=== PATIENT | female | born 1990 ===

== ENCOUNTER 2017-09-10 16:51 | Emergency (ER) | payer SELFPAY ==
[2017-09-10 17:02] VITALS: BP 122/76; PULSE 78; RESP 17; TEMP 98.3; O2SAT 99
== END 2017-09-10 18:50 | disposition left against medical advice (07) ==
LOC: H.ER 16:51
DX: Z02.89 Encounter for other administrative examinations (principal)

== ENCOUNTER 2017-09-11 04:08 | Emergency (ER) | payer SELFPAY ==
[2017-09-11 04:40] VITALS: BP 118/78; PULSE 84; RESP 16; TEMP 99; O2SAT 99
--- NOTE | 2017-09-11 05:04 | ED PDOC ---
HPI: Back Time Seen by Provider: 09/11/17 04:38 Chief Complaint (Nursing): Back Pain Chief Complaint (Provider): back pain History Per: Patient History/Exam Limitations: no limitations Onset/Duration Of Symptoms: Hrs (9) Current Symptoms Are (Timing): Still Present Exacerbating Factor(s): Standing Additional Complaint(s): 26 y/o female presents with low back pain x 9 hours. Patient states symptoms started while cooking, notes pain to radiate down right buttock to right hip. Pain worse with standing. Denies fever, nausea/vomiting, bowel/bladder incontinence, numbness/weakness lower extremities. No medication taken for relief thus far. Past Medical History Reviewed: Historical Data, Nursing Documentation, Vital Signs Vital Signs: Last Vital Signs Temp 99.0 F 09/11/17 04:38 Pulse 84 09/11/17 04:38 Resp 16 09/11/17 04:38 BP 118/78 09/11/17 04:38 Pulse Ox 99 09/11/17 04:38 - Medical History PMH: No Chronic Diseases - Surgical History Surgical History: No Surg Hx - Family History Family History: States: Unknown Family Hx - Living Arrangements Living Arrangements: Alone - Social History Alcohol: None Drugs: Denies - Immunization History Hx Tetanus Toxoid Vaccination: No Hx Influenza Vaccination: No Hx Pneumococcal Vaccination: No - Home Medications Home Medications: Ambulatory Orders Medication Instructions Recorded Metronidazole [Flagyl] 500 mg PO ONCE #4 tab 12/14/16 Ondansetron [Zofran Odt] 4 mg PO ASDIR PRN #10 odt 12/14/16 Ciprofloxacin HCl [Cipro] 500 mg PO BID #13 tab 09/11/17 Cyclobenzaprine [Cyclobenzaprine 10 mg PO BID PRN #14 tab 09/11/17 HCl] Naproxen [Naprosyn] 500 mg PO Q12 PRN #20 tablet 09/11/17 - Allergies Allergies/Adverse Reactions: Allergies Allergy/AdvReac Type Severity Reaction Status Date / Time No Known Allergies Allergy Unverified 09/10/17 16:59 Review of Systems ROS Statement: Except As Marked, All Systems Reviewed And Found Negative Musculoskeletal: Positive for: Back Pain Physical Exam - Reviewed Nursing Documentation Reviewed: Yes Vital Signs Reviewed: Yes - Physical Exam Appears: Positive for: Well, Non-toxic, No Acute Distress Head Exam: Positive for: ATRAUMATIC, NORMAL INSPECTION, NORMOCEPHALIC Skin: Positive for: Normal Color Eye Exam: Positive for: Normal appearance ENT: Positive for: Normal ENT Inspection Cardiovascular/Chest: Positive for: Regular Rate, Rhythm, Gallop Respiratory: Positive for: Normal Breath Sounds Gastrointestinal/Abdominal: Positive for: Normal Exam Back: Positive for: Muscle Spasm (right lspine paraspinals, right gluteal tenderness). Negative for: L CVA Tenderness, R CVA Tenderness, Decreased ROM Extremity: Positive for: Normal ROM Neurologic/Psych: Positive for: Alert, Oriented - ECG O2 Sat by Pulse Oximetry: 99 - Progress ED Course And Treament: lspine xray, urine, ibuprofen po, flexeril po Patient educated on findings, discharged with rx Cipro (dose given in ED), naproxen, flexeril. Advised follow up PMD 2-3 days. Return precautions given. Disposition - Clinical Impression Clinical Impression: Back pain, UTI (urinary tract infection) - Patient ED Disposition Is Patient to be Admitted: No Counseled Patient/Family Regarding: Studies Performed, Diagnosis, Need For Followup, Rx Given - Disposition Referrals: [facility] [Outside] Disposition: Routine/Home Disposition Time: 05:50 Condition: IMPROVED Prescriptions: Ciprofloxacin HCl [Cipro] 500 mg PO BID #13 tab Cyclobenzaprine [Cyclobenzaprine HCl] 10 mg PO BID PRN #14 tab PRN Reason: Muscle Spasm Naproxen [Naprosyn] 500 mg PO Q12 PRN #20 tablet PRN Reason: Pain, Moderate (4-7) Instructions: Low Back Pain in Adults, Urinary Tract Infection, Adult (DC)
[2017-09-11 05:30] LABS: SQUAMOUS EPITHIAL 3 /hpf (0-5); URINE BACTERIA RARE (<OCC); URINE BILIRUBIN NEGATIVE (NEGATIVE); URINE BLOOD NEGATIVE (NEGATIVE); URINE CLARITY CLOUDY (Clear); URINE COLOR YELLOW (YELLOW); URINE GLUCOSE (UA) NEG (Normal); URINE LEUKOCYTE ESTERASE MOD Leu/uL (Negative); URINE PROTEIN NEGATIVE (NEGATIVE); URINE UROBILINOGEN 0.2-1.0 mg/dL (0.2-1.0)
--- NOTE | 2017-09-11 08:47 | RAD ---
PROCEDURE: Radiographs of the Lumbar Spine. HISTORY: low back pain COMPARISON: No prior. FINDINGS: BONES: Normal alignment. No listhesis. No fracture. No destructive bony lesion appreciable. DISC SPACES: Unremarkable. OTHER FINDINGS: None. IMPRESSION: Unremarkable radiographs of the lumbar spine.
== END 2017-09-11 06:05 | disposition home or self-care (01) ==
LOC: H.ER 04:08
DX: N39.0 Urinary tract infection, site not specified (principal)